=== PATIENT | female | born 2000 | race Caucasian/White ===

== ENCOUNTER 2021-10-20 12:02 | Emergency (ER) | payer SELFPAY ==
[2021-10-20 13:24] VITALS: BP 152/84; PULSE 87; RESP 18; TEMP 36.9; O2SAT 99; BMI 44.9
--- NOTE | 2021-10-20 13:28 | W.ED.GENADLT ---
HPI - General Adult General: Chief complaint: Chest Pain Stated complaint: High BP Dizziness and Nausia Time Seen by Provider: 10/20/21 13:28 Source: patient Mode of arrival: ambulatory Limitations: no limitations History of Present Illness: HPI narrative: Patient is a 21-year-old female here for concerns of elevated blood pressure, chest pain, dizziness, and nausea. She states she woke up around 5 AM this morning with chest pain. Patient states she used to be on medications for hypertension but discontinued these secondary to unwanted side effects. She states her BP this morning was 200 systolic. No other known medical problems. States symptoms upon arrival have improved. Associated symptoms: Reports chest pain and nausea; Deny confusion, dyspnea, headache(s), malaise, rash, palpitations, syncope or vomiting Review of Systems Const: Denies: fever(s), chills, body aches, fatigue or malaise Eyes: Denies: change in vision, blurry vision, photophobia, floaters or seeing flashes ENMT: Denies: throat pain, odynophagia, nasal discharge or nasal congestion Card: Reports: chest pain; Denies: palpitations, irregular heart rhythm, edema, swelling of feet/ankles, lightheadedness, syncope, pre-syncope, dyspnea on exertion, orthopnea or leg pain with exertion Resp: Denies: dyspnea, hemoptysis or chest congestion GI: Reports: nausea; Denies: abdominal pain, vomiting, diarrhea or change in bowel habits Musc: Denies: neck pain, back pain, extremity pain or joint pain Skin/Breast: Denies: rash Neuro: Reports: dizziness; Denies: headache(s), numbness in extremities, weakness in extremities, sensory changes, lack of coordination, difficulty walking, frequent falls, vertigo, confusion, Slurred speech present or difficulty communicating thoughts Physical Exam Const: COMMON NORMALS: no acute distress, patient oriented x3, no limitations and alert GENERAL APPEARANCE: cooperative NUTRITIONAL APPEARANCE: obese morbidly obese ORIENTATION/CONSCIOUSNESS: Yes awake, Yes oriented to person, Yes oriented to place and Yes oriented to time HENMT: COMMON NORMALS: normocephalic and atraumatic HEAD & SCALP: normal to inspection, normocephalic and atraumatic FACE & SINUS: normal facial exam Chest: COMMONS NORMALS: normal inspection of the chest and normal palpation of entire chest wall Resp: COMMON NORMALS: normal respiratory effort and clear to auscultation bilaterally AUSCULTATION: clear to auscultation bilaterally Cardio: COMMON NORMALS: regular rate and regular rhythm RATE: regular rate RHYTHM: regular rhythm Extremity: COMMON NORMALS: normal to inspection, no clubbing, cyanosis or edema, no calf tenderness and no pedal edema Neuro: HOSSEIN COMA SCALE: document GCS findings Hos[place] coma scale eye opening: Spontaneous [place] coma scale verbal response: Orientated [place] coma scale motor response: Obey commands [place] coma scale total score: 15 COMMON NORMALS: patient oriented x3, CN's II-XII intact bilaterally, moves all extremities, no focal motor deficits, no sensory deficits noted and gait normal SENSORIUM/ORIENTATION: Yes alert, Yes oriented to person, Yes oriented to place and Yes oriented to time Skin: COMMON NORMALS: no rashes or lesions noted GENERAL SKIN EXAM: no rashes or lesions noted Course Vital Signs: Vital signs: Vital Signs Temperature 98.5 F 10/20/21 15:36 Pulse Rate 87 10/20/21 15:36 Respiratory Rate 18 10/20/21 15:36 Blood Pressure 152/84 10/20/21 15:36 Pulse Oximetry 99 10/20/21 15:36 MDM - General Adult MDM Narrative: Medical decision making narrative: Brief history and physical exam was performed as part of the triage process. Due to current ED wait time patient will be placed in waiting room until a room becomes available. Explained to patient he/she will be seen in order of severity. Patient is currently safe to wait in the waiting room until we can get them placed. Patient informed that if condition worsens at any time to please let the senior front end developer know. Work-up today including CBC, CMP, troponin, hCG. All were unremarkable. CXR is normal. EKG without ischemic changes. Her vital signs are stable. BP 150s/80s here. Patient states she is willing to get back on blood pressure medications. She states she will follow-up with her PCP in [place] when she returns home next week. Return to ED precautions given. Lab Data: Attestation: I reviewed the patient's lab results. Labs: Lab Results 10/20/21 10/20/21 10/20/21 14:05 14:05 14:05 WBC 8.9 10^3/uL 10^3/ uL (4.5-13.0) RBC 4.91 10^6/uL 10^6 /uL (4.1-5.3) Hgb 12.6 g/dL g/dL (11.5-15.3) Hct 39.7 % % (37.0-47.0) MCV 80.9 fl L fl (81-99) MCH 25.7 pg L pg (28.0-34.0) MCHC 31.7 g/dL g/dL (30.0-36.0) RDW 14.3 % % (12.1-15.1) Plt Count 336 10^3/cmm 10^3 /cmm (130-400) MPV 10.2 fL fL (7.4-10.4) Neut % (Auto) 61.4 % % Lymph % (Auto) 29.5 % % Love % (Auto) 7.2 % % Eos % (Auto) 1.1 % % Baso % (Auto) 0.5 % % Neut # (Auto) 5.44 10^3/uL 10^3 /uL (1.8-8.0) Lymph # (Auto) 2.6 10^3/uL 10^3/ uL (1.5-6.5) Love # (Auto) 0.6 10^3/uL 10^3/ uL (0.2-0.9) Eos # (Auto) 0.1 10^3/uL 10^3/ uL (0.0-0.8) Baso # (Auto) 0.0 10^3/uL 10^3/ uL (0.0-0.1) Nucleated RBC % (a uto) 0 % % Nucleated RBCs # 0.0 /100WBC /100W BC Sodium 140 mmol/L mmol/L (136-145) Potassium 3.7 mmol/L mmol/L (3.5-5.1) Chloride 103 mmol/L mmol/L (98-107) Carbon Dioxide 23 mmol/L mmol/L (22-29) Anion Gap 17.7 (5-19) BUN 7 mg/dL mg/dL (6-20) Creatinine 0.6 mg/dL mg/dL (0.5-0.9) GFR Calculation 127.5 mL/min mL/m in (90-130) Glucose 80 mg/dL mg/dL (65-115) Calculated Osmolal ity 287 mOsm/kg mOsm/ kg (285-295) Calcium 8.9 mg/dL mg/dL (8.5-10.5) Total Bilirubin 0.5 mg/dL mg/dL (0.15-1.2) AST 20 U/L U/L (0-32) ALT 27 U/L U/L (0-33) Alkaline Phosphata se 66 IU/L IU/L (35-105) Troponin T Baselin e Total Protein 7.2 g/dL g/dL (6.6-8.7) Albumin 4.4 g/dL g/dL (3.5-5.2) Globulin 2.8 g/dL g/dL (1.3-4.6) HCG, Qual Negative (Negative) 10/20/21 14:05 WBC RBC Hgb Hct MCV MCH MCHC RDW Plt Count MPV Neut % (Auto) Lymph % (Auto) Love % (Auto) Eos % (Auto) Baso % (Auto) Neut # (Auto) Lymph # (Auto) Love # (Auto) Eos # (Auto) Baso # (Auto) Nucleated RBC % (a uto) Nucleated RBCs # Sodium Potassium Chloride Carbon Dioxide Anion Gap BUN Creatinine GFR Calculation Glucose Calculated Osmolal ity Calcium Total Bilirubin AST ALT Alkaline Phosphata se Troponin T Baselin e 6 ng/L ng/L (0-10) Total Protein Albumin Globulin HCG, Qual Imaging Data^: CXR: Radiologist's impression: [address] [id number] ReportSigned Patient: Jo Ann White RUnit #: [id number]: 2000Acct#:[id number]/Sex: / FADM Date: 10/20/21Loc: ERRoom/Bed:Attending Dr: Ordering Provider/Ordering MD: Heidi Tierney Date of Service: 10/20/21 Procedure(s): XR chest 1V portable [id number] Accession Number(s): [id number] Report Number: [id number] WS: [id number] Exam: XR chest 1V portable [id number] Date/Time of Exam: 10/20/2021 2:09 PM Reason For Exam: chest pain No priors. Findings: The lungs are clear and fully expanded. Costophrenic angles are sharp. No infiltrates. Bronchovascular relief appears normal. Cardiac silhouette is unremarkable. Bony elements are intact. XR/XR chest 1V portable [id number] IMPRESSION: Unremarkable chest radiograph. Dictated By:Og Eaton, YOHANigned By:Laresigned Date/Time:10/20/211416DD/ 16 Discharge Plan Discharge Patient Disposition: Home Clinical Impression: Hypertension Qualifiers: Hypertension type: unspecified Qualified Code(s): I10 - Essential (primary) hypertension Condition: Stable Prescriptions: New lisinopril 10 mg tablet 10 mg PO DAILY Qty: 30 RF: 0 Discharge Orders: Discharge ED (Routine); Ordered 10/20/21 Ordered By: Heidi Tierney Patient Instructions: Hypertension (ED) Coding Level of Care Code ED Automation And Controls Supervisor for Chg Fwd Exam Expanded Problem Focused
--- NOTE | 2021-10-20 13:29 | XR_ITS ---
WS: [id number] Exam: XR chest 1V portable [id number] Date/Time of Exam: 10/20/2021 2:09 PM Reason For Exam: chest pain No priors. Findings: The lungs are clear and fully expanded. Costophrenic angles are sharp. No infiltrates. Bronchovascula r relief appears normal. Cardiac silhouette is unremarkable. Bony elements are intact. XR/XR chest 1V portable [id number] IMPRESSION: Unremarkable chest radiograph.
--- NOTE | 2021-10-20 13:29 | ECG_ITS ---
[facility] Test Date: 2021-10-20 Pat Name: Jo Ann White Department: Room: Gender: Female Display Associate: : 2000 Requested By: Nathaniel Kirk Order Number: [id number] Reading MD: GERALDINE MCCORMICK Measurements Intervals [place] Rate: 89 P: 20 NC: 171 QRS: 39 QRSD: 85 T: 25 QT: 351 QTc: 427 Interpretive Statements SINUS RHYTHM No previous ECG available for comparison Electronically Signed On 10-20-2021 18:58:29 ELECTRONICS HARDWARE DESIGN ENGINEER by GERALDINE MCCORMICK [email or web address]
[2021-10-20 14:16] LABS: Basophils % 0.5 %; Eosinophils # 0.1 10^3/uL (0.0-0.8); Eosinophils % 1.1 %; Hematocrit 39.7 % (37.0-47.0); Hemoglobin 12.6 g/dL (11.5-15.3); Lymphocytes # 2.6 10^3/uL (1.5-6.5); Lymphocytes % 29.5 %; Mean Corpuscular HGB Conc 31.7 g/dL (30.0-36.0); Mean Corpuscular Hemoglobin 25.7 pg (28.0-34.0); Mean Corpuscular Volume 80.9 fl (81-99); Mean Platelet Volume 10.2 fL (7.4-10.4); Monocytes # 0.6 10^3/uL (0.2-0.9); Monocytes % 7.2 %; Neutrophils # 5.44 10^3/uL (1.8-8.0); Neutrophils % 61.4 %; Nucleated Red Blood Cells % 0 %; Platelet Count 336 10^3/cmm (130-400); Red Blood Count 4.91 10^6/uL (4.1-5.3); Red Cell Distribution Width 14.3 % (12.1-15.1); White Blood Count 8.9 10^3/uL (4.5-13.0)
[2021-10-20 14:30] LABS: Alanine Aminotransferase 27 U/L (0-33); Albumin Level 4.4 g/dL (3.5-5.2); Alkaline Phosphatase 66 IU/L (35-105); Anion Gap 17.7 (5-19); Aspartate Amino Transferase 20 U/L (0-32); Blood Urea Nitrogen 7 mg/dL (6-20); Calcium 8.9 mg/dL (8.5-10.5); Carbon Dioxide 23 mmol/L (22-29); Chloride 103 mmol/L (98-107); Globulin 2.8 g/dL (1.3-4.6); Glomerular Filtration Rate 127.5 mL/min (90-130); Glucose 80 mg/dL (65-115); Osmolality Calculated 287 mOsm/kg (285-295); Potassium 3.7 mmol/L (3.5-5.1); Sodium 140 mmol/L (136-145); Total Bilirubin 0.5 mg/dL (0.15-1.2); Total Protein 7.2 g/dL (6.6-8.7)
[2021-10-20 14:33] LABS: HCG, Serum Qual Negative (Negative)
[2021-10-20 14:41] LABS: Troponin(5th) Baseline 6 ng/L (0-10)
[2021-10-20 15:36] VITALS: BP 152/84; PULSE 87; RESP 18; TEMP 36.9; O2SAT 99
== END 2021-10-20 15:36 | disposition home or self-care (01) ==
PROVIDERS: Emergency Provider Physician Assistant
DX: I10 Essential (primary) hypertension (principal)
CPT/HCPCS: 36415; 71045; 80053; 84484; 84703; 85025; 93005; 99283

== ENCOUNTER 2023-06-30 20:16 | Emergency (ER) | payer SELFPAY ==
[2023-06-30 20:22] VITALS: BP 129/81; PULSE 126; RESP 16; TEMP 39.4; O2SAT 96; BMI 40.3
--- NOTE | 2023-06-30 20:40 | XRR_ITS ---
PROCEDURE INFORMATION: Exam: XR Chest Exam date and time: 06/30/2023 9:07 PM Age: 23 years old Clinical indication: Cough; Additional info: Cough, fever TECHNIQUE: Imaging protocol: Radiologic exam of the chest. Views: 1 view. COMPARISON: CR XR chest 1V portable [id number] 10/20/2021 2:15 PM FINDINGS: Lungs: Unremarkable. No consolidation. Pleural spaces: Unremarkable. No pleural effusion. No pneumothorax. Heart/Mediastinum: Unremarkable. No cardiomegaly. Bones/joints: Unremarkable. Intraperitoneal space: There is no free intraperitoneal air. XR/XR chest 1V portable [id number] IMPRESSION: No acute cardiopulmonary disease.
--- NOTE | 2023-06-30 20:47 | ED_ITS ---
HPI - Fever General: Chief Complaint: Fever Stated Complaint: headache, n/v Time Seen by Provider: 06/30/23 20:39 History of Present Illness: 23-year-old female comes in today with complaints of fever, headache, body aches, occasional cough, nausea and vomiting, and illness since last . Patient appears nontoxic. Patient does have a history of hypertension but does not take any routine medicines at this time. Patient appears no pain at this time. Associated symptoms: Reports chills, headache(s), nausea and vomiting; Deny chest pain Review of Systems General: Reports: 10 or more systems reviewed and unremarkable except in HPI and below Const: Reports: fever(s), chills, body aches and malaise Eyes: Denies: change in vision ENMT: Denies: throat pain Card: Denies: chest pain Resp: Reports: non-productive cough; Denies: dyspnea GI: Reports: nausea and vomiting : Denies: difficulty voiding Musc: Denies: neck pain or back pain Skin/Breast: Denies: rash Neuro: Reports: headache(s) Physical Exam Const: COMMON NORMALS: alert HENMT: COMMON NORMALS: normocephalic and Normal external nose present HEAD & SCALP: normocephalic NOSE: Normal external nose present THROAT: posterior oropharynx abnormal cobblestoning Neck/C-Spine: COMMON NORMALS: full ROM and no meningeal signs Resp: COMMON NORMALS: normal respiratory effort and clear to auscultation bilaterally AUSCULTATION: clear to auscultation bilaterally Cardio: COMMON NORMALS: regular rhythm RATE: tachycardic RHYTHM: regular rhythm GI: COMMON NORMALS: Soft to palpation and non-tender PALPATION: Yes Soft to palpation : COMMON NORMALS: Yes no CVA tenderness BLADDER/KIDNEY EXAM: Yes no CVA tenderness Back/Pelvis: COMMON NORMALS: no CVA tenderness Extremity: COMMON NORMALS: normal to inspection Neuro: SENSORIUM/ORIENTATION: Yes alert MENINGEAL SIGNS: Yes no meningeal signs Skin: COMMON NORMALS: turgor normal GENERAL SKIN EXAM: turgor normal Course Vital Signs: Vital signs: Vital Signs Temperature 103 F H 06/30/23 20:22 Pulse Rate 98 06/30/23 21:46 Respiratory Rate 16 06/30/23 21:46 Blood Pressure 123/56 06/30/23 21:46 Pulse Oximetry 95 08/30/23 21:46 Oxygen Delivery Me thod Room Air 06/30/23 20:22 MDM - Fever Medical Decision Making 23-year-old female comes in today for complaints of fever and illness since last . On exam patient appears nontoxic. Patient moves all extremities well. Patient has normal range of motion of the neck without any signs of meningitis. No edema is noted in the extremities. Patient denies any tick bites. Lungs are clear to auscultation. Differential diagnosis includes not limited to viral syndrome, pneumonia, UTI. CBC was unremarkable, CMP had a potassium of 3.1, creatinine 0.9, and AST and ALT bumped at 50 and 51. CRP was 56. COVID-19 test for antigen was negative. The patient most likely had a viral syndrome we went ahead and infused 2 L of IV fluids and treated for her headache with Reglan 5 mg, 1 g of acetaminophen, and 15 mg ketorolac. This res olved patient's headache and temperature. Urinalysis came back positive for elevated white blood cell count, leukocyte esterases and bacteria. I was concerned for possible enterococcal urinary tract infection and went ahead and treated with ceftriaxone 1 g and will continue on cephalexin 500 mg twice a day for 5 more days. Patient agreed to plan of care and need for follow-up or return to ER for worsening symptoms. Lab Data 06/30/23 20:44 06/30/23 20:44 Radiology Impressions Chest X-Ray 06/30/23 20:40 IMPRESSION: No acute cardiopulmonary disease. Laboratory Results WBC 3.44 10^3/uL (3.29-11.43) 06/30/23 20:44 RBC 5.59 10^6/uL (3.85-5.65) 06/30/23 20:44 Hgb 13.60 g/dL (11.27-16.99) 06/30/23 20:44 Hct 42.2 % (36-47) 06/30/23 20:44 MCV 75.5 fl (85-98) L 06/30/23 20:44 MCH 24.3 pg (27-33) L 06/30/23 20:44 MCHC 32.2 g/dL (30-55) 06/30/23 20:44 RDW 15.0 % (12.1-15.1) 06/30/23 20:44 Plt Count 182 10^3/cmm (157-399) 06/30/23 20:44 MPV 10.7 fL (7.4-10.4) H 06/30/23 20:44 Neut % (Auto) 52.2 % 06/30/23 20:44 Lymph % (Auto) 35.8 % 06/30/23 20:44 [place] % (Auto) 9.9 % 06/30/23 20:44 Eos % (Auto) 0.9 % 06/30/23 20:44 Baso % (Auto) 0.9 % 06/30/23 20:44 Neut # (Auto) 1.80 10^3/uL (1.8-7.7) 06/30/23 20:44 Lymph # (Auto) 1.2 10^3/uL (0.8-4.8) 06/30/23 20:44 [place] # (Auto) 0.3 10^3/uL (0.2-0.9) 06/30/23 20:44 Eos # (Auto) 0.0 10^3/uL (0.0-0.8) 06/30/23 20:44 Baso # (Auto) 0.0 10^3/uL (0.0-0.1) 06/30/23 20:44 Nucleated RBC % (auto) 0 % 06/30/23 20:44 Nucleated RBCs # 0.0 /100WBC 06/30/23 20:44 Sodium 136 mmol/L (136-145) 06/30/23 20:44 Potassium 3.1 mmol/L (3.5-5.1) L 06/30/23 20:44 Chloride 95 mmol/L (98-107) L 06/30/23 20:44 Carbon Dioxide 27 mmol/L (22-29) 06/30/23 20:44 Anion Gap 17.1 (5-19) 06/30/23 20:44 BUN 8 mg/dL (6-20) 06/30/23 20:44 Creatinine 0.9 mg/dL (0.5-0.9) 06/30/23 20:44 GFR Calculation 78.3 mL/min (90-130) L 06/30/23 20:44 Glucose 104 mg/dL (65-115) 06/30/23 20:44 Calculated Osmolality 281 mOsm/kg (285-295) L 06/30/23 20:44 Calcium 8.9 mg/dL (8.5-10.5) 06/30/23 20:44 Total Bilirubin 0.6 mg/dL (0.15-1.2) 06/30/23 20:44 AST 50 U/L (0-32) H 06/30/23 20:44 ALT 51 U/L (0-33) H 06/30/23 20:44 Alkaline Phosphatase 66 U/L (35-105) 06/30/23 20:44 C-Reactive Protein 56.2 mg/L (0.0-4.9) H 06/30/23 20:44 Total Protein 8.3 g/dL (6.6-8.7) 06/30/23 20:44 Albumin 4.8 g/dL (3.5-5.2) 06/30/23 20:44 Globulin 3.5 g/dL (1.3-4.6) 06/30/23 20:44 HCG, Qual Negative (Negative) 06/30/23 20:44 Urine Color Yellow (Yellow) 06/30/23 20:42 Urine Appearance Sl hazy (CLEAR) A 06/30/23 20:42 Urine pH 5 (5-7) 06/30/23 20:42 Ur Specific [place] 1.015 (1.005-1.030) 06/30/23 20:42 Urine Protein 1+ (Negative) H 06/30/23 20:42 Urine Glucose (UA) Norm (Normal) 06/30/23 20:42 Urine Ketones 1+ (Negative) H 06/30/23 20:42 Urine Blood 3+ (Negative) H 06/30/23 20:42 Urine Nitrate Negative (Negative) 06/30/23 20:42 Urine Bilirubin 1+ (Negative) H 06/30/23 20:42 Urine Urobilinogen 1 mg/dL (Negative) H 06/30/23 20:42 Ur Leukocyte Esterase 2+ (Negative) H 06/30/23 20:42 Urine RBC 5-10 /hpf (0-2) H 06/30/23 20:42 Urine WBC 40-55 /hpf (0-5) H 06/30/23 20:42 Ur Squamous Epith Cells 15-25 /hpf (0-5) H 06/30/23 20:42 Amorphous Sediment 1+ /hpf 06/30/23 20:42 Urine Bacteria 2+ /hpf (NONE) H 06/30/23 20:42 Urine Mucus 2+ /hpf 06/30/23 20:42 SARS-CoV-2 Ag (Rapid) negative (Negative) 06/30/23 20:38 Discharge Plan Discharge Patient Disposition: Home Clinical Impression: UTI (urinary tract infection) due to Enterococcus Condition: Stable Prescriptions: New cephalexin 500 mg capsule 500 mg PO BID 5 Days Qty: 10 0RF No Action lisinopril 10 mg tablet 10 mg PO DAILY Qty: 30 0RF Discharge Orders: Discharge ED (Routine); Ordered 06/30/23 Ordered By: David Paul Discharge Diet: Usual diet Discharge Activity: Increase activity as tolerated Patient Instructions: Urinary Tract Infection in Women (ED) Activity Restrictions/Additional Instructions: Encourage plenty of water and fluids. Use acetaminophen and ibuprofen for pain and discomfort. Take antibiotic as directed. Follow-up with primary care in 1 week for recheck of urine. Return to ED for worsening symptoms or new concerns. Coding Level of Care Code ED Casting Wheel Operator Helper for Ramana Tillman
[2023-06-30 20:49] LABS: Basophils % 0.9 %; Eosinophils % 0.9 %; Hematocrit 42.2 % (36-47); Lymphocytes # 1.2 10^3/uL (0.8-4.8); Lymphocytes % 35.8 %; Mean Corpuscular HGB Conc 32.2 g/dL (30-55); Mean Corpuscular Hemoglobin 24.3 pg (27-33); Mean Corpuscular Volume 75.5 fl (85-98); Mean Platelet Volume 10.7 fL (7.4-10.4); Monocytes # 0.3 10^3/uL (0.2-0.9); Monocytes % 9.9 %; Neutrophils % 52.2 %; Nucleated Red Blood Cells % 0 %; Platelet Count 182 10^3/cmm (157-399); Red Blood Count 5.59 10^6/uL (3.85-5.65); White Blood Count 3.44 10^3/uL (3.29-11.43)
[2023-06-30] MEDS: ketorolac 30 mg/mL INJ 15 MG IVP (20:51)
[2023-06-30] MEDS: acetaminophen 1,000 MG/100 ML PIGGYBACK 400 MG IV (20:51)
[2023-06-30] MEDS: metoclopramide 5 mg/mL SDV 2 mL IVP (20:52)
[2023-06-30] MEDS: sodium chloride 0.9% 1,000 ML 999 ML IV (20:52)
[2023-06-30 20:58] LABS: SARS Covid-2 Antigen negative (Negative)
[2023-06-30 21:08] LABS: Alanine Aminotransferase 51 U/L (0-33); Albumin Level 4.8 g/dL (3.5-5.2); Alkaline Phosphatase 66 U/L (35-105); Anion Gap 17.1 (5-19); Aspartate Amino Transferase 50 U/L (0-32); Blood Urea Nitrogen 8 mg/dL (6-20); C Reactive Protein 56.2 mg/L (0.0-4.9); Calcium 8.9 mg/dL (8.5-10.5); Carbon Dioxide 27 mmol/L (22-29); Chloride 95 mmol/L (98-107); Globulin 3.5 g/dL (1.3-4.6); Glomerular Filtration Rate 78.3 mL/min (90-130); Glucose 104 mg/dL (65-115); Osmolality Calculated 281 mOsm/kg (285-295); Potassium 3.1 mmol/L (3.5-5.1); Sodium 136 mmol/L (136-145); Total Bilirubin 0.6 mg/dL (0.15-1.2); Total Protein 8.3 g/dL (6.6-8.7)
[2023-06-30 21:46] VITALS: BP 123/56; PULSE 98; RESP 16; O2SAT 95
[2023-06-30 21:46] LABS: Slide Review Slide Review Perform
[2023-06-30] MEDS: lactated ringers 1,000 ML 999 ML IV (22:04)
[2023-06-30 22:31] LABS: HCG, Serum Qual Negative (Negative)
[2023-06-30 22:44] LABS: Glucose Urine UA Norm (Normal); Ketones Urine 1+ (Negative); Protein Urine 1+ (Negative); Specific Gravity, Urine 1.015 (1.005-1.030); Urine Appearance SL Hazy (CLEAR); Urine Color Yellow (Yellow); pH Urine 5 (5-7)
[2023-06-30 22:45] LABS: Add Urine Microscopic? YES; Bilirubin Urine 1+ (Negative); Blood Urine 3+ (Negative); Leukocyte Esterase Urine 2+ (Negative); Nitrate Urine Negative (Negative); Squamous Epithelial Cell Urine 15-25 /hpf (0-5); Urobilinogen Urine 1 mg/dL (Negative); WBC Urine 40-55 /hpf (0-5)
[2023-06-30 22:46] LABS: Bacteria Urine 2+ /hpf
[2023-06-30 22:47] LABS: Add Urine Culture? No; Amorphous Sediment Urine 1+ /hpf; Mucus Urine 2+ /hpf
[2023-06-30] MEDS: cefTRIAXone 1,000 MG in sodium chloride 0.9% (plus) 50 ML 100 MG IV (22:55)
[2023-06-30 22:57] VITALS: BP 120/60; PULSE 90; RESP 16; O2SAT 96
[2023-06-30 23:09] VITALS: BP 152/90; PULSE 96; RESP 16; O2SAT 97
[2023-06-30 23:36] LABS: Adenovirus Not Detected (NOT DETECT); Chlamydia Pneumoniae Not Detected (NOT DETECT); Coronavirus 229E,HKU1,NL63,OC4 Not Detected (NOT DETECT); Human Metapneumovirus Not Detected (NOT DETECT); Human Rhinovirus/Enterovirus Not Detected (NOT DETECT); Influenza A Not Detected (NOT DETECT); Influenza A H1 Not Detected (NOT DETECT); Influenza A H1-2009 Not Detected (NOT DETECT); Influenza A H3 Not Detected (NOT DETECT); Influenza B Not Detected (NOT DETECT); Mycoplasma Pneumoniae Not Detected (NOT DETECT); Parainfluenza Virus Type 1 Not Detected (NOT DETECT); Parainfluenza Virus Type 2 Not Detected (NOT DETECT); Parainfluenza Virus Type 3 Not Detected (NOT DETECT); Parainfluenza Virus Type 4 Not Detected (NOT DETECT); Respiratory Syncytial Virus A Not Detected (NOT DETECT); Respiratory Syncytial Virus B Not Detected (NOT DETECT); SARS-COV-2 Not Detected (NOT DETECT)
== END 2023-06-30 23:15 | disposition home or self-care (01) ==
PROVIDERS: Emergency Provider Nurse Practitioner Family
DX: N39.0 Urinary tract infection, site not specified (principal); B95.2 Enterococcus as the cause of diseases classified elsewhere; Z20.822 Contact with and (suspected) exposure to COVID-19
CPT/HCPCS: 71045; 80053; 81001; 84703; 85025; 86140; 87426; 87486; 87581; 87633; 96365; 96367; 96375; 99284; J0131; J0696; J1885; J2765; J7030; J7120

== ENCOUNTER 2023-07-07 12:27 | Emergency (ER) | payer SELFPAY ==
[2023-07-07 12:35] VITALS: BP 125/85; PULSE 95; RESP 16; TEMP 36.7; O2SAT 97
--- NOTE | 2023-07-07 13:20 | ED_ITS ---
HPI - Nausea/Vomiting/Diarrhea General: Chief complaint: Nausea/Vomiting/Diarrhea Stated complaint: nausea, dizzy Time Seen by Provider: 07/07/23 12:30 Source: patient Mode of arrival: ambulatory History of Present Illness: 23-year-old female presents emergency room complaining of nausea and vomiting states has been going on for the last 2 weeks she states she was seen a week ago and still not any better. She denies any medic easy melena hematemesis or coffee-ground emesis. States she has not been eating or drinking much. When she was seen a week ago she has urine suspicious for UTI and was started on Keflex she is still having mild UTI symptoms. Labs from that visit were reviewed. No culture was done because a number of squamous cells on the urinalysis patient was given 5 days of Keflex. MD elicited complaint: nausea and vomiting Onset (ago): week(s) (2) Associated nausea: Yes Severity: moderate Exacerbating factors: eating Relieving factors: none Associated symtoms: Reports nausea; Denies altered mental status, anxiety, bloating, change in vision, chest pain, cough, diaphoresis, decreased urine output, dizziness, dysuria, epistaxis, fatigue, fecal incontinence, fevers/chills, headache(s), anorexia, malaise, myalgias, numbness, palpitations, rash, short of breath, syncope, tenesmus, tinnitus or weakness Review of Systems Const: Denies: fever(s), chills, fatigue, malaise or diaphoresis Eyes: Denies: change in vision ENMT: Denies: tinnitus or epistaxis Card: Denies: chest pain, palpitations or syncope Resp: Denies: dyspnea, productive cough or non-productive cough GI: Reports: nausea and vomiting; Denies: abdominal pain, bloating or fecal incontinence : Reports: flank pain; Denies: dysuria, urinary frequency or urinary urgency Skin/Breast: Denies: rash or pruritus Neuro: Denies: headache(s) or dizziness Psych: Denies: anxiety Physical Exam Const: EXAM LIMITATIONS: no altered mental status GENERAL APPEARANCE: cooperative and comfortable ORIENTATION/CONSCIOUSNESS: Yes awake, Yes oriented to person, Yes oriented to place and Yes oriented to time HENMT: COMMON NORMALS: normocephalic, atraumatic and hearing grossly normal bilaterally HEAD & SCALP: normocephalic and atraumatic Resp: COMMON NORMALS: normal respiratory effort, No retractions, No use of accessory muscles and clear to auscultation bilaterally AUSCULTATION: clear to auscultation bilaterally Cardio: COMMON NORMALS: regular rate, regular rhythm and No murmurs present (Cardio) RATE: regular rate RHYTHM: regular rhythm GI: COMMON NORMALS: Soft to palpation and No hepatosplenomegaly present AUSCULTATION: Yes normoactive bowel sounds PALPATION: Yes Soft to palpation, No Tenderness to palpation present (GI), No Guarding due to palpation present (GI) and Yes No hepatosplenomegaly present Extremity: COMMON NORMALS: normal to inspection, capillary refill normal, no clubbing, cyanosis or edema, no calf tenderness and no pedal edema Neuro: SENSORIUM/ORIENTATION: Yes oriented to person, Yes oriented to place and Yes oriented to time Skin: COMMON NORMALS: no rashes or lesions noted GENERAL SKIN EXAM: no rashes or lesions noted Course Vital Signs: Vital signs: Vital Signs Temperature 98.1 F 07/07/23 12:35 Pulse Rate 86 07/07/23 16:13 Respiratory Rate 18 07/07/23 15:30 Blood Pressure 125/77 07/07/23 16:13 Pulse Oximetry 95 07/07/23 16:13 Oxygen Delivery Me thod Room Air 07/07/23 15:30 MDM - Nausea/Vomiting/Diarrhea Medical Decision Making Symptoms improved. Patient does have a mild UTI. Discharge home on clear liquid diet promethazine as needed start Macrobid recheck if not improving. Medical Records I reviewed the patient's medical records. Lab Data I reviewed the patient's lab results. 07/07/23 13:13 07/07/23 13:13 Laboratory Results WBC 8.29 10^3/uL (3.29-11.43) 07/07/23 13:13 RBC 5.15 10^6/uL (3.85-5.65) 07/07/23 13:13 Hgb 12.30 g/dL (11.27-16.99) 07/07/23 13:13 Hct 39.2 % (36-47) 07/07/23 13:13 MCV 76.1 fl (85-98) L 07/07/23 13:13 MCH 23.9 pg (27-33) L 07/07/23 13:13 MCHC 31.4 g/dL (30-55) 07/07/23 13:13 RDW 15.9 % (12.1-15.1) H 07/07/23 13:13 Plt Count 222 10^3/cmm (157-399) 07/07/23 13:13 MPV 11.0 fL (7.4-10.4) H 07/07/23 13:13 Lymph % (Auto) Not Reportable 07/07/23 13:13 [place] % (Auto) Not Reportable 07/07/23 13:13 Lymph # (Auto) Not Reportable 07/07/23 13:13 [place] # (Auto) Not Reportable 07/07/23 13:13 Total Counted 100 (0-100) 07/07/23 13:13 Atypical Lymphs % 46.0 % (0-5) H 07/07/23 13:13 Absolute Neutrophils 2.4 10^3/cmm (1.4-6.5) 07/07/23 13:13 Segmented Neutrophils 27 % 07/07/23 13:13 Abs Segm Neuts (Man) 2.2 10/cmm (1.6-7.1) 07/07/23 13:13 Band Neutrophils 2.0 % 07/07/23 13:13 Abs Band Neuts (Man) 0.2 10^3/cmm (0.0-1.2) 07/07/23 13:13 Absolute Lymphocytes 5.6 10^3/cmm (1.2-3.4) H 07/07/23 13:13 Lymphocytes (Manual) 22 % 07/07/23 13:13 Monocytes (Manual) 3.0 % 07/07/23 13:13 Absolute Monocytes 0.2 10^3/cmm (0.1-0.6) 07/07/23 13:13 Eosinophils (Manual) 0 % 07/07/23 13:13 Absolute Eosinophils 0.0 10^3/cmm (0.0-0.7) 07/07/23 13:13 Basophils (Manual) 0.0 % 07/07/23 13:13 Absolute Basophils 0.0 10^3/cmm (0.0-0.2) 07/07/23 13:13 Metamyelocytes 0.0 % 07/07/23 13:13 Myelocytes 0.0 % 07/07/23 13:13 Promyelocytes 0.0 % 07/07/23 13:13 Nucleated RBCs 0.0 /100WBC (0-1) 07/07/23 13:13 Platelet Estimate Normal (Normal) 07/07/23 13:13 Microcytosis 1+ H 07/07/23 13:13 Sodium 137 mmol/L (136-145) 07/07/23 13:13 Potassium 3.3 mmol/L (3.5-5.1) L 07/07/23 13:13 Chloride 97 mmol/L (98-107) L 07/07/23 13:13 Carbon Dioxide 28 mmol/L (22-29) 07/07/23 13:13 Anion Gap 15.3 (5-19) 07/07/23 13:13 BUN 8 mg/dL (6-20) 07/07/23 13:13 Creatinine 1.1 mg/dL (0.5-0.9) H 07/07/23 13:13 GFR Calculation 62.1 mL/min (90-130) L 07/07/23 13:13 Glucose 96 mg/dL (65-115) 07/07/23 13:13 Calculated Osmolality 282 mOsm/kg (285-295) L 07/07/23 13:13 Calcium 8.9 mg/dL (8.5-10.5) 07/07/23 13:13 Total Bilirubin 0.5 mg/dL (0.15-1.2) 07/07/23 13:13 AST 101 U/L (0-32) H 07/07/23 13:13 ALT 111 U/L (0-33) H 07/07/23 13:13 Alkaline Phosphatase 99 U/L (35-105) 07/07/23 13:13 Total Protein 7.5 g/dL (6.6-8.7) 07/07/23 13:13 Albumin 4.3 g/dL (3.5-5.2) 07/07/23 13:13 Globulin 3.2 g/dL (1.3-4.6) 07/07/23 13:13 HCG, Qual Negative (Negative) 07/07/23 13:13 Lyme Ab (Western Blot) <0.90 index 07/07/23 15:30 Coronavirus 229E (PCR) Not detected (NOT DETECT) 07/07/23 15:40 Hepatitis A IgM Ab Non-reactive (Nonreactive) 07/07/23 13:13 Hep Bs Antigen Non-reactive (Nonreactive) 07/07/23 13:13 Hep B Core IgM Ab Non-reactive (Nonreactive) 07/07/23 13:13 Hepatitis C Antibody Non-reactive (Nonreactive) 07/07/23 13:13 SARS-CoV-2 (PCR) Not detected (NOT DETECT) 07/07/23 15:40 Discharge Plan Discharge Patient Disposition: Home Clinical Impression: Nausea & vomiting, Cystitis Condition: Stable Prescriptions: New promethazine 25 mg tablet 25 mg PO Q6H PRN (Reason: nausea and vomiting) Qty: 20 0RF Macrobid 100 mg capsule 100 mg PO BID 7 Days Qty: 14 0RF Rx Instructions: must administer with a meal/food Discharge Orders: Discharge ED (Routine); Ordered 07/07/23 Ordered By: Nathaniel Meza Discharge Diet: Clear Liquid Discharge Activity: Increase activity as tolerated Patient Instructions: Opioid Safety, Pain Management Activity Restrictions/Additional Instructions: You are seen today for nausea and vomiting. Your liver enzymes were elevated. They should be rechecked within the next month with your primary care doctor. There are pending test for tickborne illnesses and COVID which we will contact you if they are positive. Recommend that you start oral antibiotics for the bladder infection give you promethazine to use as needed for nausea and vomiting. Coding Level of Care Code ED Development Executive for Ramana Tillman
[2023-07-07 13:23] LABS: Hematocrit 39.2 % (36-47); Mean Corpuscular HGB Conc 31.4 g/dL (30-55); Mean Corpuscular Hemoglobin 23.9 pg (27-33); Mean Corpuscular Volume 76.1 fl (85-98); Platelet Count 222 10^3/cmm (157-399); Red Blood Count 5.15 10^6/uL (3.85-5.65); Red Cell Distribution Width 15.9 % (12.1-15.1); White Blood Count 8.29 10^3/uL (3.29-11.43)
[2023-07-07 13:30] VITALS: BP 132/77; PULSE 91; O2SAT 96
[2023-07-07 13:40] LABS: HCG, Serum Qual Negative (Negative)
[2023-07-07] MEDS: ondansetron 2 mg/ML SDV 2 mL 4 MG IVP (13:44)
[2023-07-07] MEDS: sodium chloride 0.9% 1,000 ML 999 ML IV (13:44)
[2023-07-07 13:47] LABS: Alanine Aminotransferase 111 U/L (0-33); Albumin Level 4.3 g/dL (3.5-5.2); Alkaline Phosphatase 99 U/L (35-105); Anion Gap 15.3 (5-19); Aspartate Amino Transferase 101 U/L (0-32); Blood Urea Nitrogen 8 mg/dL (6-20); Calcium 8.9 mg/dL (8.5-10.5); Carbon Dioxide 28 mmol/L (22-29); Chloride 97 mmol/L (98-107); Globulin 3.2 g/dL (1.3-4.6); Glomerular Filtration Rate 62.1 mL/min (90-130); Glucose 96 mg/dL (65-115); Osmolality Calculated 282 mOsm/kg (285-295); Potassium 3.3 mmol/L (3.5-5.1); Sodium 137 mmol/L (136-145); Total Bilirubin 0.5 mg/dL (0.15-1.2); Total Protein 7.5 g/dL (6.6-8.7)
[2023-07-07 13:49] LABS: Absolute Neutrophil 2.4 10^3/cmm (1.4-6.5); Absolute Segmented Neutrophil 2.2 10/cmm (1.6-7.1); Band Neutrophils Absolute 0.2 10^3/cmm (0.0-1.2); Eosinophils 0 %; Lymphocytes 22 %; Lymphocytes Absolute 5.6 10^3/cmm (1.2-3.4); Microcytosis 1+; Monocytes Absolute 0.2 10^3/cmm (0.1-0.6); Platelet Estimate Normal (Normal); Segmented Neutrophils 27 %; Slide Review Slide Review Perform; Total Cells Counted 100 (0-100)
--- NOTE | 2023-07-07 14:16 | US_ITS ---
WS: [id number] ULTRASOUND ABDOMEN LIMITED CLINICAL INFORMATION: abd pain/ n/v COMPARISON: None. FINDINGS: Liver Size: Enlarged craniocaudal length: 17.3 cm. Echogenicity: Coarse surface nodularity: None. Mass (size and location): None. Bile ducts Intrahepatic ducts: Normal. Common bile duct diameter: 0.3 cm. Gallbladder Normal. Gallstones: None. Gallbladder sludge: None. Gallbladder wall thickening: None. Pericholecystic fluid: None. Sonographic Borjas sign: Absent. Pancreas Normal as visualized. Right kidney: Normal. Hydronephrosis: None. Size: 13.2 cm x 4.4 cm x 5.2 cm. Abdominal aorta and IVC Visualized portions are normal. Ascites: None. IMPRESSION: 1. Hepatomegaly with coarse liver echotexture likely due to fatty infiltration 2. Normal gallbladder. No cholelithiasis. 3. No hydronephrosis in the RIGHT kidney. 4. Normal common bile duct.
[2023-07-07 14:30] VITALS: BP 147/82; PULSE 87; O2SAT 98
[2023-07-07 14:54] LABS: Hepatitis A Antibody IgM Non-Reactive (Nonreactive); Hepatitis B Core IgM Non-Reactive (Nonreactive); Hepatitis B Surface Antigen Non-Reactive (Nonreactive); Hepatitis C Virus Antibody Non-Reactive (Nonreactive)
[2023-07-07 15:30] VITALS: BP 120/47; PULSE 80; RESP 18; O2SAT 96
[2023-07-07 16:13] VITALS: BP 125/77; PULSE 86; O2SAT 95
[2023-07-07 17:31] LABS: Adenovirus Not Detected (NOT DETECT); Chlamydia Pneumoniae Not Detected (NOT DETECT); Coronavirus 229E,HKU1,NL63,OC4 Not Detected (NOT DETECT); Human Metapneumovirus Not Detected (NOT DETECT); Human Rhinovirus/Enterovirus Not Detected (NOT DETECT); Influenza A Not Detected (NOT DETECT); Influenza A H1 Not Detected (NOT DETECT); Influenza A H1-2009 Not Detected (NOT DETECT); Influenza A H3 Not Detected (NOT DETECT); Influenza B Not Detected (NOT DETECT); Mycoplasma Pneumoniae Not Detected (NOT DETECT); Parainfluenza Virus Type 1 Not Detected (NOT DETECT); Parainfluenza Virus Type 2 Not Detected (NOT DETECT); Parainfluenza Virus Type 3 Not Detected (NOT DETECT); Parainfluenza Virus Type 4 Not Detected (NOT DETECT); Respiratory Syncytial Virus A Not Detected (NOT DETECT); Respiratory Syncytial Virus B Not Detected (NOT DETECT); SARS-COV-2 Not Detected (NOT DETECT)
[2023-07-08 14:30] LABS: Lyme AB Screen <0.90 index
[2023-07-12 17:19] LABS: E. Chaffeensis AB IGG <1:64; E. Chaffeensis AB IGM <1:20
[2023-07-13 16:14] LABS: RMSF IGG NOT DETECTED; RMSF IGM NOT DETECTED
== END 2023-07-07 16:14 | disposition home or self-care (01) ==
PROVIDERS: Emergency Provider Family Medicine
DX: R11.2 Nausea with vomiting, unspecified (principal); N30.90 Cystitis, unspecified without hematuria; Z20.822 Contact with and (suspected) exposure to COVID-19
CPT/HCPCS: 36415; 76705; 80053; 80074; 84703; 85007; 85025; 86618; 86666; 86757; 87635; 96361; 96374; 99284; J2405; J7030